=== PATIENT | male | born 1950 | race Caucasian/White ===

== ENCOUNTER 2018-03-19 16:01 | Emergency (ER) | payer MEDICARE, BC ==
--- NOTE | 2018-03-19 16:16 | Emergency Department Record ---
History of Present Illness - General Chief complaint: Cold Stated complaint: URI Time Seen by Provider: 03/19/18 16:15 Source: Patient Mode of Arrival: Ambulatory Limitations: No limitations - History of Present Illness Initial comments: The patient is here due to feeling mildly SOB with chest tightness like he is having an asthma issue. The onset was 6 hours ago. The tightness is mainly on the R side of the chest. There is no L sided CP, fever, chills, cough or any pleuritic CP. The patient has been using his inhallers also. He denies any recent illnesses. MD complaint: Other Onset/Timin -: Hour(s) Consistency: Intermittent Improves with: None Worsens with: None Associated Symptoms: Cough - Related Data Allergies Allergy/AdvReac Type Severity Reaction Status Date / Time No Known Drug Allergies Allergy Verified 03/19/18 16:07 Travel Screening - Travel/Exposure Within Last 30 Days Have you traveled within the last 30 days?: No - Travel/Exposure Within Last Year Have you traveled outside the [place] in the last year?: No - Additonal Travel Details Have you been exposed to anyone with a communicable illness?: No - Travel Symptoms Symptom Screening: None Review of Systems Constitutional: Denies: Chills, Fever Eyes: Denies: Eye discharge ENT: Denies: Congestion Respiratory: Reports: Dyspnea. Denies: Cough, Hemoptysis Cardiovascular: Denies: Chest pain Past Medical History - SOCIAL HISTORY Smoking Status: Never smoker Alcohol Use: Rare Drug Use: None - RESPIRATORY Hx Respiratory Disorders: Yes Hx Asthma: Yes Hx COPD: Yes (pre) - CARDIOVASCULAR Hx Cardio Disorders: Yes Hx Cardiac Cath: Yes Hx Hypertension: Yes - NEURO Hx Neuro Disorders: No - GI Hx GI Disorders: Yes Hx Reflux: Yes - Hx Genitourinary Disorders: No - ENDOCRINE Hx Endocrine Disorders: No - MUSCULOSKELETAL Hx Musculoskeletal Disorders: No - PSYCH Hx Psych Problems: No - HEMATOLOGY/ONCOLOGY Hx Hematology/Oncology Disorders: No Family Medical History Any Significant Family History?: Yes Hx Heart Disease: Father, Mother, Brother/Sister, Grandparents Hx HTN: Father, Mother, Brother/Sister, Grandparents Hx Stroke: Grandparents Physical Exam - General General Appearance: Alert, Oriented x3, Cooperative, No acute distress - Head Head exam: Atraumatic, Normocephalic, Normal inspection - Eye Eye exam: Normal appearance, PERRL, EOMI - ENT Throat exam: Normal inspection. negative: Tonsillar erythema, Tonsillar exudate - Neck Neck exam: Normal inspection, Full ROM. negative: Tenderness - Respiratory Respiratory exam: Normal lung sounds bilaterally. negative: Accessory muscle use, Chest wall tenderness, Decreased breath sounds, Rales, Respiratory distress , Rhonchi, Stridor, Wheezes - Cardiovascular Cardiovascular Exam: Regular rate, Normal rhythm, Normal heart sounds. negative : Diastolic murmur, Systolic murmur - GI/Abdominal GI/Abdominal exam: Soft, Normal bowel sounds. negative: Tenderness - Extremities Extremities exam: Normal inspection, Full ROM, Normal capillary refill. negative: Tenderness - Back Back exam: Reports: Normal inspection - Neurological Neurological exam: Alert, Normal gait. negative: Abnormal gait, Motor sensory deficit - Psychiatric Psychiatric exam: negative: Anxious Course Vital Signs 03/19/18 16:09 Temperature 97.7 F Pulse Rate 80 Respiratory 18 Rate Blood Pressure 190/92 Pulse Ox 95 - Reevaluation(s) Reevaluation #1: 2nd EKG: Neg for ischemic changes. NSR at 74. 03/19/18 17:23 Reevaluation #2: The patient is resting comfortably. His vague R sided chest discomfort is better and almost gone. There is no L sided CP or discomfort. 03/19/18 17:30 Reevaluation #3: I did discuss the case with Dr. Tamez and she does agree to the admission. The patient also is agreeable to the overnight stay. 03/19/18 17:39 Medical Decision Making - Management Options MDM Management: Additional Work-up Planned (e.g. ADM/Transfer/OP Study) - Data Complexity MDM Data: Labs Ordered and/or Reviewed, X-Ray Ordered and/or Reviewed, EKG Ordered and/or Reviewed - Lab Data Result diagrams: 03/19/18 16:25 03/19/18 16:25 - EKG Data -: EKG Interpreted by Me EKG: No Acute Changes (Neg for ischemic changes.) - Radiology Data Radiology results: Report reviewed (CXR: Neg for acute changes.) Disposition Disposition: Admit Clinical Impression: Atypical chest pain Disposition: Still a Patient at [facility] Decision to Admit: Admit from ER Decision to Admit Date: 03/19/18 Decision to Admit Time: 17:40 Accepting Physician: Tammy Time Discussed w/Accepting Physician: 17:40 Condition: (2) Stable Instructions: Chest Pain (ED) Forms: Patient Portal Access Time of Disposition: 17:40 Quality - Quality Measures Quality Measures: N/A - Blood Pressure Screening View Details: Yes Does Patient Have Any of the Following: Active Dx of HTN Blood Pressure Classification: Hypertensive Reading Systolic Measurement: 190 Diastolic Measurement: 92 Screening for High Blood Pressure: Patient Exclusion, Hx of HTN [G9744]
[2018-03-19] MEDS ORDERED: IPRATROPIUM/ALBUTEROL (0.5MG/3MG) NEB INH ONE (16:24)
[2018-03-19 16:32] LABS: BASO % 0.4 % (0-6); EOS % 0.7 % (0-6); GRAN % 69.3 % (47-80); HEMATOCRIT 48.2 % (42.0-52.0); HEMOGLOBIN 16.2 gm/dl (14.0-18.0); MEAN CELL VOLUME 86.2 fl (81-97); MEAN CORPUSCULAR HGB CONC 33.6 g/dl (32-36); MEAN PLATELET VOLUME 11.3 fl (7.4-10.4); MONO % 6.6 % (0-9); PLATELET COUNT 176 K/uL (130-400); RED BLOOD COUNT 5.59 M/uL (4.40-5.70); RED CELL DISTRIBUTION WIDTH 13.6 % (11.5-14.5)
[2018-03-19 16:44] LABS: BLOOD UREA NITROGEN 11 mg/dL (8-23); EST GLOMERULAR FILTRATION RATE > 60 mL/min
[2018-03-19 16:47] LABS: GLUCOSE,RANDOM 218 mg/dL (74-109)
[2018-03-19 16:50] LABS: CREATINE PHOSPHOKINASE 265 U/L (39-308)
[2018-03-19 16:52] LABS: CKMB 4.9 ng/mL (<6.73); PARTIAL THROMBOPLASTIN TIME 26.4 SECONDS (24.5-39.1); PROTHROMBIN TIME (PATIENT) 10.1 SECONDS (9.5-12.1)
[2018-03-19] MEDS ORDERED: ASPIRIN 325 MG TABLET PO ONE (17:00)
[2018-03-19] MEDS ORDERED: ONDANSETRON HCL IV 4 MG/2 ML VIAL IVP ONE (17:03)
[2018-03-19] MEDS ORDERED: MORPHINE SULFATE 10 MG/ML VIAL IVP ONE (17:03)
[2018-03-19] MEDS ORDERED: NITROGLYCERIN 0.4MG SL TABLET #25 BTL SL PRN (18:30)
[2018-03-19] MEDS ORDERED: MORPHINE SULFATE 10 MG/ML VIAL IVP PRN (18:30)
[2018-03-19] MEDS ORDERED: ACETAMINOPHEN 325 MG TAB PO PRN (18:30)
[2018-03-19] MEDS ORDERED: ALBUTEROL HFA 8 GM INHALER INH PRN (18:30)
[2018-03-19 22:03] LABS: CKMB 19.6 ng/mL (<6.73)
[2018-03-19 23:34] LABS: CKMB RELATIVE INDEX 7.3 % (0-4)
[2018-03-19] MEDS ORDERED: HEPARIN SODIUM 1000 UNIT/1 ML 10ML VIAL IVP ONE (23:58)
[2018-03-20] MEDS ORDERED: HEPARIN SODIUM/D5W 25,000 UNITS/500 ML BAG IV SCH (00:15)
--- NOTE | 2018-03-20 00:37 | Physician Addendum ---
Addendum (Physician) Was notified by RN that the pt's trop increased from 0.01 ->0.094 and CK-MB increased from 4.9 -> 19.6. Vitals stable. Pt complains of pain 2/10 in the chest -better than on admission (which was 6/10). No other sx. Rpt EKG looks like ST elevation in leads V3 and progressing to elevation in V2. I called [facility] bed control for transfer. Fellow called back and stated that Dr. Livingston had to be paged to accept admission. He stated that he did not know his number. I called [facility] control again and they paged specialty person cardiology attending. In the mean time I called [facility]. Dr. Faust accepted admission for STEMI. He stated that since the pt presented 6 hours after onset of CP and now that it has been roughly 12 hours from onset of pain and pt is stable it is likely that he already had an CA and the damage was likely done. He recommended to start a heparin 5000unit bolus and 1000units/hr drip. Aspirin and nitroglycerin was already given in the ED at presentation. Heparin ordered and nurse notified to start drip. Nurse to notify me if vitals are no longer stable or if pain increases. [facility] did not call back.
--- NOTE | 2018-03-20 07:26 | RADIOLOGY REPORT ---
EXAM: CHEST, TWO VIEWS HISTORY: COUGH AND SHORTNESS OF BREATH. RIGHT LOWER CHEST PAIN. TECHNIQUE: PA and lateral upright views of the chest were obtained. Comparison: 06/13/17. FINDINGS: The heart is normal in size. There is calcification of the aorta. A vascular stent is again noted projecting along the medial aspect of the right apex. The lungs are clear. There is no pneumothorax or effusion. The bones appear intact. IMPRESSION: STABLE CHEST WITH NO ACUTE PROCESS IDENTIFIED. JOB NUMBER: [id number] MTDD
[2018-03-20] MEDS ORDERED: METFORMIN 500 MG TABLET PO SCH (08:00)
[2018-03-20] MEDS ORDERED: ASPIRIN 325 MG TAB ENTERIC-COATED PO SCH (10:00)
== END 2018-03-20 01:25 | disposition short-term general hospital (02) ==
LOC: ER 16:01 → UNDOADMOB 18:11 → MEDSURG 18:11 → ER 03-20 01:25 → UNDODISOB 03-20 01:25
DX: I21.3 ST elevation (STEMI) myocardial infarction of unspecified site (principal); R06.02 Shortness of breath; I10 Essential (primary) hypertension
CPT/HCPCS: 99285 ×2; 96374; 96375; 82550; 85025; 85730; 85610; 82553; 80048; 84484; 71046; 94640; 93005; 93010; J2405; J2270

== ENCOUNTER 2018-12-03 18:49 | Emergency (ER) | payer MEDICARE, BC ==
[2018-12-03] MEDS ORDERED: DOXYCYCLINE HYCLATE 100 MG CAPSULE PO ONE (19:24)
--- NOTE | 2018-12-03 19:25 | Emergency Department Record ---
History of Present Illness - General Chief Complaint: Chest Pain Stated Complaint: CHEST CONGESTION,COUGH Time Seen by Provider: 12/03/18 19:19 Source: Patient Mode of Arrival: Ambulatory Limitations: No limitations - History of Present Illness Initial Comments: 68 yo male presents to ED for evaluation of chest congestion and cough symptoms x 2 days, reports chills and "feeling hot", denies body aches. Patient reports previous history of similar symptoms related to pneumonia, also reports history of asthma. Patient denies chest pain or discomfort symptoms. Patient denies nausea, vomiting, abdominal pain, or loose stools. MD Complaint: Other Onset/Timin -: Days(s) Onset: During rest Consistency: Constant Improves With: Rest Context: Recent illness Other Symptoms: Cough, Fever Treatments Prior to Arrival: None - Related Data Home Medications Medication Instructions Recorded Confirmed Last Taken Aspirin [Aspirin EC] 81 mg PO DAILY 12/03/18 12/03/18 1 Day Ago ~12/02/18 Carvedilol [Coreg] 3.125 mg PO DAILY 12/03/18 12/03/18 1 Day Ago ~12/02/18 Lisinopril [Prinivil] 5 mg PO DAILY 12/03/18 12/03/18 1 Day Ago ~12/02/18 Nitroglycerin 0.4MG [Nitrostat 1 tab SL TID PRN 12/03/18 12/03/18 1 Day Ago 0.4MG] ~12/02/18 Omeprazole 20 mg PO DAILY 12/03/18 12/03/18 1 Day Ago ~12/02/18 Rosuvastatin Calcium 20 mg PO DAILY 12/03/18 12/03/18 1 Day Ago ~12/02/18 Ticagrelor [Brilinta] 90 mg PO BID 12/03/18 12/03/18 1 Day Ago ~12/02/18 Previous Rx's Medication Instructions Recorded Doxycycline Hyclate 100 mg PO BID #18 cap 12/03/18 Allergies Allergy/AdvReac Type Severity Reaction Status Date / Time cholestyramine Allergy NEUROTOXICI Verified 12/03/18 19:10 [From LoCholest] TY sucrose [From LoCholest] Allergy NEUROTOXICI Verified 12/03/18 19:10 TY Travel Screening - Travel/Exposure Within Last 30 Days Have you traveled within the last 30 days?: No - Travel/Exposure Within Last Year Have you traveled outside the [place] in the last year?: No - Additonal Travel Details Have you been exposed to anyone with a communicable illness?: No - Travel Symptoms Symptom Screening: None Review of Systems Constitutional: Reports: Chills, Fever, Malaise. Denies: Night sweats Eyes: Denies: Eye discharge, Eye pain ENT: Reports: Congestion. Denies: Ear pain, Epistaxis Respiratory: Reports: Cough. Denies: Dyspnea Cardiovascular: Denies: Chest pain, Dyspnea on exertion, Syncope Endocrine: Denies: Fatigue, Heat or cold intolerance Gastrointestinal: Denies: Abdominal pain, Nausea, Vomiting Genitourinary: Denies: Incontinence, Retention Musculoskeletal: Denies: Arthralgia, Back pain Skin: Denies: Bruising, Change in color Neurological: Denies: Abnormal gait, Confusion, Headache, Seizure Psychiatric: Denies: Anxiety Hematological/Lymphatic: Denies: Anemia, Blood Clots Past Medical History - SOCIAL HISTORY Smoking Status: Never smoker Alcohol Use: Occasional Drug Use: None - RESPIRATORY Hx Respiratory Disorders: Yes Hx Asthma: Yes Hx COPD: Yes (pre) - CARDIOVASCULAR Hx Cardio Disorders: Yes Hx Cardiac Cath: Yes (1 stent) Hx Heart Attack: Yes (ruled in with cardiac enzymes) Hx Hypertension: Yes - NEURO Hx Neuro Disorders: No - GI Hx GI Disorders: Yes Hx Reflux: Yes - Hx Genitourinary Disorders: No - ENDOCRINE Hx Endocrine Disorders: No - MUSCULOSKELETAL Hx Musculoskeletal Disorders: No - PSYCH Hx Psych Problems: No - HEMATOLOGY/ONCOLOGY Hx Hematology/Oncology Disorders: No Family Medical History Any Significant Family History?: Yes Hx Heart Disease: Father, Mother, Brother/Sister, Grandparents Hx HTN: Father, Mother, Brother/Sister, Grandparents Hx Stroke: Grandparents Physical Exam - General General Appearance: Alert, Oriented x3, Cooperative, Mild distress Limitations: No limitations - Head Head exam: Atraumatic, Normocephalic, Normal inspection Head exam detail: negative: Abrasion, Contusion, Anaya's sign, General tenderness, Hematoma, Laceration - Eye Eye exam: Normal appearance. negative: Conjunctival injection, Periorbital swelling, Periorbital tenderness, Scleral icterus - ENT Ear exam: negative: Auricular hematoma, Auricular trauma Nasal Exam: negative: Active bleeding, Discharge, Dried blood, Foreign body Mouth exam: negative: Drooling, Laceration, Muffled voice, Tongue elevation - Neck Neck exam: Normal inspection. negative: Meningismus, Tenderness - Respiratory Respiratory exam: Wheezes (Mild wheeze right lung). negative: Rales, Respiratory distress, Rhonchi, Stridor - Cardiovascular Cardiovascular Exam: Regular rate, Normal rhythm, Normal heart sounds - GI/Abdominal GI/Abdominal exam: Soft. negative: Rebound, Rigid, Tenderness - Rectal Rectal exam: Deferred - exam: Deferred - Extremities Extremities exam: Normal inspection. negative: Pedal edema, Tenderness - Back Back exam: Denies: CVA tenderness (R), CVA tenderness (L) - Neurological Neurological exam: Alert, Normal gait, Oriented X3 - Psychiatric Psychiatric exam: Normal affect, Normal mood - Skin Skin exam: Normal color. negative: Abrasion Type of lesion: negative: abrasion Course Vital Signs 12/03/18 19:00 Temperature 99.6 F Pulse Rate [ 91 H Left] Respiratory 18 Rate Blood Pressure 164/90 [Left Arm] Pulse Ox 97 - Reevaluation(s) Reevaluation #1: 12/03/18 19:25 EKG: NSR 85 Indeterminate axis, normal intervals Q waves III, AVF. no acute ST-T wave changes on examination. Patient was seen and examined, denies chest pain or discomfort. Patient is concerned about possible pneumonia, declined CXR when given the option to have CXR performed in the ED. Will treat with Doxycycline as directed with instructions to return to the ED if symptoms worsen. Patient appears stable for discharge with outpatient treatment as discussed. Disposition Disposition: Discharge Clinical Impression: URI (upper respiratory infection) Qualifiers: URI type: unspecified URI Qualified Code(s): J06.9 - Acute upper respiratory infection, unspecified Disposition: Home, Self-Care Condition: (2) Stable Instructions: Pneumonia (ED) Additional Instructions: Return to ED if your symptoms worsen or if you have any concerns. Doxycycyline as directed. Follow-up with your family doctor in 3-5 days as directed. Prescriptions: Doxycycline Hyclate 100 mg PO BID #18 cap Forms: Patient Portal Access Time of Disposition: 19:25 Quality - Quality Measures Quality Measures: N/A - Blood Pressure Screening Does Patient Have Any of the Following: No Blood Pressure Classification: Pre-Hypertensive BP Reading Systolic Measurement: 128 Diastolic Measurement: 83 Screening for High Blood Pressure: < Pre-Hypertensive BP, F/U Documented > [G8950] Pre-Hypertensive Follow-up Interventions: Referral to alternative/primary care provider.
== END 2018-12-03 19:31 | disposition home or self-care (01) ==
LOC: ER 18:49
DX: J06.9 Acute upper respiratory infection, unspecified (principal); J44.9 Chronic obstructive pulmonary disease, unspecified; I25.2 Old myocardial infarction; I11.9 Hypertensive heart disease without heart failure
CPT/HCPCS: 93005; 93010; 99284